=== PATIENT | female | born 1970 | race Caucasian/White ===

== ENCOUNTER → 2024-02-03 16:11 | Outpatient (REF) | payer BC, SELFPAY | LOC: HWWDC 16:11 | PROVIDERS: ATTENDING PHYSICIAN Nurse Practitioner Adult Health; FAMILY PHYSICIAN Family Medicine | DX: Z12.31 Encounter for screening mammogram for malignant neoplasm of breast (principal) | CPT/HCPCS: 77063; 77067 ==

== ENCOUNTER → 2025-03-03 07:41 | Outpatient (REF) | payer BC, SELFPAY | LOC: HWWDC 07:41 | PROVIDERS: ATTENDING PHYSICIAN Nurse Practitioner Adult Health; FAMILY PHYSICIAN Internal Medicine | DX: Z12.31 Encounter for screening mammogram for malignant neoplasm of breast (principal) | CPT/HCPCS: 77063; 77067 ==